=== PATIENT | female | born 1980 | race African-American/Black ===

== ENCOUNTER 2020-11-25 07:26 | Emergency (ER) | payer OTHER ==
[~2020-11-25] VITALS: Ht 167.6 cm; Wt 61.2 kg
[2020-11-25 07:26] VITALS: BP 129/98
--- NOTE | 2020-11-25 07:35 | NUR ---
SEEN AND EXAMINED BY .
--- NOTE | 2020-11-25 07:41 | NUR ---
ER PHLEB AT BEDSIDE FOR BLOOD DRAW.
--- NOTE | 2020-11-25 08:03 | NUR ---
Patient given written and verbal discharge instructions. Patient verbalizes understanding of instructions. Patient is ambulatory with steady gait. Refuses offer of detention placement. Patient given list of available shelters in surrounding area.
== END 2020-11-25 08:05 | disposition home or self-care (01) ==
LOC: ER 07:29
DX: G40.909 Epilepsy, unspecified, not intractable, without status epilepticus (principal); Z59.0 Homelessness; Z91.14 Patient's other noncompliance with medication regimen; Z88.0 Allergy status to penicillin; Z88.2 Allergy status to sulfonamides
CPT/HCPCS: 36415; 80185-TC